=== PATIENT | female | born 1975 | race Caucasian/White ===

== ENCOUNTER 2016-07-24 17:36 | Emergency (ER) | payer OTHER ==
[~2016-07-24] VITALS: Ht 162.6 cm; Wt 83.5 kg
[~2016-07-24 17:36] MED LIST: HUM100VI14 SC; METF1000 PO
[2016-07-24 17:46] VITALS: Ht 162.6 cm; Wt 83.5 kg
[2016-07-24 19:41] LABS: URINE BLOOD (Dip) POC Trace-intact (NEGATIVE)
[2016-07-24 20:23] LABS: ADD SCAN DIFF NO
[2016-07-24 20:26] LABS: BASOPHILS % 0.4 % (0.0-2.0); NEUTROPHIL # 2.7 10^3/ul (1.6-7.5)
[2016-07-24 20:33] LABS: ADD UMIC YES; EOSINOPHILS # 0.1 10^3/ul (0.0-0.5); EOSINOPHILS % 1.9 % (0.0-7.0); HEMATOCRIT 41.7 % (37.0-47.0); LYMPHOCYTES # 1.8 10^3/ul (0.8-2.9); LYMPHOCYTES % 34.1 % (15.0-51.0); MEAN CORPUSCULAR HEMOGLOBIN 29.4 pg (29.0-33.0); MEAN CORPUSCULAR HGB CONC 33.6 g/dl (32.0-37.0); MEAN CORPUSCULAR VOLUME 87.6 fl (82.0-101.0); MEAN PLATELET VOLUME 11.2 fl (7.4-10.4); MONOCYTE # 0.7 10^3/ul (0.3-0.9); MONOCYTES % 12.5 % (0.0-11.0); NEUTROPHILS % 50.9 % (39.0-77.0); PLATELET COUNT 232 10^3/UL (140-415); RED BLOOD COUNT 4.76 10^6/ul (4.20-5.40); RED CELL DISTRIBUTION WIDTH 12.7 % (11.5-14.5); URINE BILIRUBIN (Dip) NEGATIVE (NEGATIVE); URINE BLOOD (Dip) TRACE (NEGATIVE); URINE COLOR LT. YELLOW (YELLOW); URINE GLUCOSE (Dip) >=1000 % (NEGATIVE); URINE KETONES (Dip) NEGATIVE (NEGATIVE); URINE LEUKOCYTE ESTERASE (Dip) NEGATIVE (NEGATIVE); URINE NITRITE (Dip) NEGATIVE (NEGATIVE); URINE TOTAL PROTEIN (Dip) NEGATIVE (NEGATIVE); URINE UROBILINOGEN (Dip) 0.2 E.U./dL (0.1-1.0); WHITE BLOOD COUNT 5.2 10^3/ul (4.8-10.8)
--- NOTE | 2016-07-24 20:59 | RADRPT ---
PROCEDURE: First trimester obstetrical ultrasound. CLINICAL INDICATION: , pelvic pain TECHNIQUE: Transabdominal and transvaginal wallace scale and color Doppler ultrasound of the uterus . COMPARISON: OB ultrasound 07/04/2014 FINDINGS: A single intrauterine gestation is present within the uterine fundus. No evidence of extrauterine gestation. Mean sac diameter: 0.41 cm pole not identified. There appears to be a subchorionic hemorrhage or implantation hemorrhage present measuring up to 1.5 cm Normal size ovaries are present with intact blood flow. Corpus luteum within the left ovary and prob able residual follicle measuring up to 18 mm Free fluid: None. IMPRESSION: Early appearing intrauterine gestational sac with estimated gestational age of 5 weeks 1 days by ult rasound criteria. Small subchorionic hemorrhage/implantation hemorrhage is present. Unless clinically contraindicated recommend correlation with quantitative beta HCG trend and repeate d pelvic ultrasound. RPTAT: AADD .Yariel Henriquez MD, MD Date Time Electronically viewed and signed by .Yariel Henriquez MD, on 07/24/2016 20:59 .B/
[2016-07-24 21:19] LABS: SQUAMOUS EPITHELIAL CELL,UR MANY; URINE RBCS 0-2 /HPF (0)
[2016-07-24] MEDS ORDERED: METO10TA92 PO (22:02)
[2016-07-24] MEDS ORDERED: ACET500C5 PO (22:02)
--- NOTE | 2016-07-24 22:09 | ERD ---
ER Documentation Chief Complaint Date/Time DATE: 07/24/16 TIME: 22:04 Chief Complaint COUGH AND CONGESTION WITH NAUSEA/VOMITING X 1 DAY, CHECK HPI Patient is a 41-year-old female with a past medical history of diabetes who presents the emergency department with a cough and congestion 1 week. Patient states that her cough is productive in nature. Patient reports nasal congestion and clear rhinorrhea. Patient's younger children are also sick with similar symptoms. Both her children are being seen here today. Patient states that she is also having some nausea and vomiting. Patient states she is unsure if she is . Patient does not recall her last period. Patient is reporting bilateral pelvic pain. Patient denies any upper abdominal pain, chest pain, shortness of breath, body aches, ear pain, throat pain. Patient denies any pain with urination. Patient denies any vaginal bleeding or excessive vaginal discharge. ROS All systems reviewed and are negative except as per history of present illness. Medications Home Meds Active Scripts Metoclopramide* (Reglan*) 10 Mg Tablet, 10 MG PO Q6 Y for NAUSEA AND/OR VOMITING , #10 TAB Prov:CHERYL ALBRIGHT PA-C 07/24/16 Acetaminophen* (Tylophen*) 500 Mg Capsule, 1 CAP PO Q6H Y for PAIN AND OR ELEVATED TEMP, #20 CAP Prov:CHERYL ALBRIGHT PA-C 07/24/16 Reported Medications Insulin Human Isophan/Regular (Novolin 70/30) 100 Units/Ml Susp, 30 UNIT SC QPM , EA 12/07/15 Insulin Human Isophan/Regular (Novolin 70/30) 100 Units/Ml Susp, 60 UNIT SC QAM , EA 12/07/15 Metformin Hcl* (Metformin Hcl*) 1,000 Mg Tablet, 1000 MG PO WITH BREAKFAST DINNE , #30 TAB 12/07/15 Allergies Allergies: Coded Allergies: No Known Allergies (Verified Allergy, Unknown, 12/07/15) PMhx/Soc History of Surgery: Yes ( X 1 ) Anesthesia Reaction: No Hx Neurological Disorder: No Hx Respiratory Disorders: No Hx Cardiac Disorders: No Hx Psychiatric Problems: No Hx Miscellaneous Medical Probl: Yes (DM) Hx Alcohol Use: No Hx Substance Use: No Hx Tobacco Use: No Smoking Status: Never smoker FmHx Family History: No diabetes Physical Exam Vitals Vital Signs Date Time Temp Pulse Resp B/P Pulse Ox O2 Delivery O2 Flow Rate FiO2 07/24/16 22:24 98.9 99 19 142/85 96 Room Air 07/24/16 17:46 98.4 106 20 146/88 96 Physical Exam GENERAL: Well-developed, well-nourished female. Appears in no acute distress. HEAD: Normocephalic, atraumatic. No deformities or ecchymosis. EYE: Pupils equal, round, and reactive to light. EOMs intact. No conjunctival erythema. No eye discharge. ENT: External ear without any masses or tenderness. Auditory canals clear bilaterally. TM visualized bilaterally, non-erythematous, non-bulging. Nasal mucosa pink with no discharge. Oropharynx is pink without any tonsillar erythema or exudates. No uvula deviation. No kissing tonsils. NECK: Supple. No meningismus. Normal ROM of the neck. LUNG: Clear to auscultation bilaterally. No rhonchi, wheezing, rales or coarse breath sounds. HEART: Regular rate and rhythm. No murmurs, rubs or gallops. ABDOMEN: Soft, nontender, and nondistended. Positive bowel sounds in all four quadrants. No rebound tenderness, no guarding. (-) McBurney's point tenderness. No CVA tenderness. BACK: No midline tenderness. EXTREMITES: Equal pulses bilaterally. No peripheral clubbing, cyanosis or edema. No unilateral leg swelling. NEUROLOGIC: Alert and oriented to person, place and time. Moving all four extremities. 5/5 strength in all extremities. Normal speech. Steady gait. (-) Brudzinski sign- no flexion of the hips and knees noted with neck flexion. SKIN: Normal color. Warm and dry. No rashes or lesions. Result Diagram: 07/24/162005 Results 24 hrs Laboratory Tests Test 07/24/16 19:43 07/24/16 20:06 Bedside Urine Blood Trace-intact Bedside Urine Glucose (UA) 0.50% Bedside Urine Ketones (LAB) Negative Bedside Urine Leukocyte Esterase (L Negative Bedside Urine Nitrite (LAB) Negative Bedside Urine Protein (LAB) Negative Bedside Urine pH (LAB) 5.0 Basophils # 0.010^3/ul Basophils % 0.4% Beta HCG, Quantitative 2420.8mIU/ml Eosinophils # 0.110^3/ul Eosinophils % 1.9% Hematocrit 41.7% Hemoglobin 14.0g/dl Lymphocytes # 1.810^3/ul Lymphocytes % 34.1% Mean Corpuscular Hemoglobin 29.4pg Mean Corpuscular Hemoglobin Concent 33.6g/dl Mean Corpuscular Volume 87.6fl Mean Platelet Volume 11.2fl Monocytes # 0.710^3/ul Monocytes % 12.5% Neutrophils # 2.710^3/ul Neutrophils % 50.9% Nucleated Red Blood Cells # 0.010^3/ul Nucleated Red Blood Cells % 0.0/100WBC Platelet Count 84615^3/UL Red Blood Count 4.7610^6/ul Red Cell Distribution Width 12.7% Urine Bilirubin NEGATIVE Urine Clarity CLEAR Urine Color LT. YELLOW Urine Glucose >=1000% Urine Hemoglobin TRACE Urine Ketones NEGATIVE Urine Leukocyte Esterase NEGATIVE Urine Microscopic RBC 0-2/HPF Urine Microscopic WBC NONE SEEN/HPF Urine Nitrite NEGATIVE Urine Specific [place] 1.015 Urine Squamous Epithelial Cells MANY Urine Total Protein NEGATIVE Urine Urobilinogen 0.2 E.U./dL Urine pH 5.5 White Blood Count 5.210^3/ul Procedures/MDM ED COURSE: The patient was stable throughout ED course. I kept the patient and/or family informed of laboratory and diagnostic imaging results throughout the ED course. Urine test was positive. Patient requested pelvic ultrasound given that she was unsure of her last menstrual period. DIAGNOSTIC IMAGING: Read by radiologist. DIAGNOSTIC IMAGING REPORT Patient: DEDRICK DE OLIVEIRA : 1975 Age: 41 Sex: F MR #: [id number] DOS: 07/24/162001 Ordering MD: CHERYL ALBRIGHT PA-C Location: [facility] Room/Bed: PROCEDURE: First trimester obstetrical ultrasound. CLINICAL INDICATION: , pelvic pain TECHNIQUE: Transabdominal and transvaginal wallace scale and color Doppler ultrasound of the uterus . COMPARISON: OB ultrasound 07/04/2014 FINDINGS: A single intrauterine gestation is present within the uterine fundus. No evidence of extrauterine gestation. Mean sac diameter: 0.41 cm pole not identified. There appears to be a subchorionic hemorrhage or implantation hemorrhage present measuring up to 1.5 cm Normal size ovaries are present with intact blood flow. Corpus luteum within the left ovary and probable residual follicle measuring up to 18 mm Free fluid: None. IMPRESSION: Early appearing intrauterine gestational sac with estimated gestational age of 5 weeks 1 days by ultrasound criteria. Small subchorionic hemorrhage/implantation hemorrhage is present. Unless clinically contraindicated recommend correlation with quantitative beta HCG trend and repeated pelvic ultrasound. RPTAT: AADD .Yariel Henriquez MD, MD Date Time Electronically viewed and signed by .Yariel Henriquez MD, MD on 07/24/2016 20:59 .B/ CC: CHERYL ALBRIGHT PA-C MEDICAL DECISION MAKING: This is a 41-year-old female who presents the emergency department with a cough , nasal congestion, nausea, vomiting 1 week. Vital signs were reviewed. Patient was afebrile. Patient was unsure of when her last menstrual period was. Patient denied any vaginal bleeding. Patient requested test. Urine test was positive. Given that patient did not recall her last menstrual period, pelvic ultrasound was obtained. Pelvic US showed early appearing intrauterine gestational sac with estimated gestational age of 5 weeks 1 days by ultrasound criteria. Small subchorionic hemorrhage/implantation hemorrhage is present. B-HCG was noted to be 2480.5. Patient was O+. CBC showed no evidence of systemic infection or severe anemia. Urine showed + glucose. Given these findings, the patients presentation is most consistent with early IUP and viral URI. I have a much lower clinical concern for ectopic , ruptured ectopic , molar , spontaneous , anembyronic . Low suspicion for acute otitis media, otitis externa, strep pharyngitis, peritonsillar abscess, pneumonia. PRESCRIPTIONS: Tylenol, Reglan DISCHARGE: At this time, patient is stable for discharge and outpatient management. Patient was given a copy of all lab work and imaging studies. I have instructed the patient to follow-up with her OBGYN in 1-2 days for further monitoring including a repeat b-HCG level. I have instructed the patient to promptly return to the ER at any time for any new or worsening symptoms including increased pain, nausea, vomiting, continued bleeding, weakness, syncope or fever. The patient and/or family expressed understanding of and agreement with this plan. All questions were answered. Home care instructions were provided. Departure Diagnosis: Primary Impression: Viral URI Additional Impressions: Weeks of gestation: less than 8 weeks Qualified Code: Z3A.01 - Less than 8 weeks gestation of Nausea and vomiting Vomiting type: unspecified Vomiting Intractability: unspecified Qualified Code: R11.2 - Nausea and vomiting, intractability of vomiting not specified, unspecified vomiting type Patient Instructions: After Age 35 Referrals: [facility] YOU HAVE RECEIVED A MEDICAL SCREENING EXAM AND THE RESULTS INDICATE THAT YOU DO NOT HAVE A CONDITION THAT REQUIRES URGENT TREATMENT IN THE EMERGENCY DEPARTMENT. FURTHER EVALUATION AND TREATMENT OF YOUR CONDITION CAN WAIT UNTIL YOU ARE SEEN IN YOUR DOCTORS OFFICE WITHIN THE NEXT 1-2 DAYS. IT IS YOUR RESPONSIBILITY TO MAKE AN APPOINTMENT FOR FOLOW-UP CARE. IF YOU HAVE A PRIMARY DOCTOR --you should call your primary doctor and schedule an appointment IF YOU DO NOT HAVE A PRIMARY DOCTOR YOU CAN CALL OUR PHYSICIAN REFERRAL HOTLINE AT IF YOU CAN NOT AFFORD TO SEE A PHYSICIAN YOU CAN CHOSE FROM THE FOLLOWING [facility] [address] [facility]. [facility] [address] [facility]. [facility] [address] [facility]. [facility] [address] [facility]. [facility] [address] [facility]. [facility]. [address] [facility] YOU HAVE RECEIVED A MEDICAL SCREENING EXAM AND THE RESULTS INDICATE THAT YOU DO NOT HAVE A CONDITION THAT REQUIRES URGENT TREATMENT IN THE EMERGENCY DEPARTMENT. FURTHER EVALUATION AND TREATMENT OF YOUR CONDITION CAN WAIT UNTIL YOU ARE SEEN IN YOUR DOCTORS OFFICE WITHIN THE NEXT 1-2 DAYS. IT IS YOUR RESPONSIBILITY TO MAKE AN APPOINTMENT FOR FOLOW-UP CARE. IF YOU HAVE A PRIMARY DOCTOR --you should call your primary doctor and schedule and appointment IF YOU DO NOT HAVE A PRIMARY DOCTOR YOU CAN CALL OUR PHYSICIAN REFERRAL HOTLINE AT . IF YOU CAN NOT AFFORD TO SEE A PHYSICIAN YOU CAN CHOSE FROM THE FOLLOWING [facility] INSTITUTIONS: [facility] [address] [place] [address] [facility] [address] [place] [address] [facility] [address] [place] [address] [employer] [address] [facility] [address] [place] [address] OFFICE FAX , [facility] [address] [place] [address] [address] DENIS [address] [address] [place] [address] [address] BARRETT [facility] [address] [facility], [address], [facility] [address] [address] [address] [place] [address] [facility] [address] [place] [address] [phone] [facility] [address] - [place]ON [address] [facility]. [address], [place] [address] [address] [place] [address] [facility]. [address], [place] [address] [address] HILLI[address] [facility] [address] [place], [place] [id number] Additional Instructions: Follow-up with her [facility] in 2 days for repeat beta-hCG level. Call your primary care doctor TOMORROW for an appointment during the next 1-2 days.See the doctor sooner or return here if your condition worsens before your appointment time. CHERYL ALBRIGHT PA-C Jul 24, 2016 22:09 CHERYL ALBRIGHT PA-C Jul 24, 2016 22:09
[2016-07-24 22:24] VITALS: BP 142/85; PULSE 99; RESP 19; TEMP 98.9
== END 2016-07-24 22:24 | disposition home or self-care (01) ==
LOC: E/R 17:36 → FTE 22:24
DX: J06.9 Acute upper respiratory infection, unspecified (principal); E11.9 Type 2 diabetes mellitus without complications; R10.2 Pelvic and perineal pain; R11.2 Nausea with vomiting, unspecified; Z33.1 Pregnant state, incidental; Z79.84 Long term (current) use of oral hypoglycemic drugs; Z79.4 Long term (current) use of insulin
CPT/HCPCS: 36415; 76801; 76817; 81001; 84702; 85025; 86900; 86901; Z7502; 81003

== ENCOUNTER 2016-07-26 14:50 | Emergency (ER) | payer OTHER ==
[~2016-07-26] VITALS: Ht 162.6 cm; Wt 83.0 kg
[~2016-07-26 14:50] MED LIST changes: +ACET500C5 PO; +METO10TA92 PO
[2016-07-26 15:01] VITALS: Ht 162.6 cm; Wt 83.0 kg
[2016-07-26 16:25] LABS: URINE BLOOD (Dip) POC 1+ (NEGATIVE)
[2016-07-26] MEDS ORDERED: CEPH-443 PO (18:37)
--- NOTE | 2016-07-26 18:49 | ERD ---
ER Documentation Chief Complaint Date/Time DATE: 07/26/16 TIME: 18:39 Chief Complaint 8-WEEKS . HEAVY VB THIS MORNING BUT NOW STOPPED. SORE THROAT. HPI Patient is a 41-year-old female, approximately 5 weeks , with past medical history of diabetes who presents to the emergency department with vaginal bleeding which occurred this morning and has now stopped. Patient states that he noticed some bleeding while wiping her vaginal area. Patient denies using any pads today. Patient denies any fever, chills, nausea, vomiting , chest pain, shortness of breath, abdominal pain, pelvic pain or loss of consciousness. Patient does report some burning pain and itching with urination. Patient reports taking all DM medications as prescribed. Patient's children and herself are currently recovering from a cold. She continues to have some mild throat pain. Patient denies any difficulty eating or drinking fluids. Patient denies any trismus, drooling or hyperextension of her neck. No recent travel. Patient does not recall her last menstrual period. Of note, patient was seen by myself on 07-24-2016 and at that time she was diagnosed with a viral URI and new onset . Patient was unaware that she was at that time. Pelvic ultrasound showed an early appearing intrauterine gestational sac with an estimated gestational age of 5 weeks 1 days by ultrasound criteria. Small subchorionic hemorrhage/implantation hemorrhage is present. Patient's urinalysis on 07-24-2016 showed greater than 1000% glucose. ROS All systems reviewed and are negative except as per history of present illness. Medications Home Meds Active Scripts Cephalexin* (Keflex*) 500 Mg Capsule, 500 MG PO QID for 7 Days, CAP Prov:CHERYL ALBRIGHT PA-C 07/26/16 Metoclopramide* (Reglan*) 10 Mg Tablet, 10 MG PO Q6 Y for NAUSEA AND/OR VOMITING , #10 TAB Prov:CHERYL ALBRIGHT PA-C 07/24/16 Acetaminophen* (Tylophen*) 500 Mg Capsule, 1 CAP PO Q6H Y for PAIN AND OR ELEVATED TEMP, #20 CAP Prov:CHERYL ALBRIGHT PA-C 07/24/16 Reported Medications Insulin Human Isophan/Regular (Novolin 70/30) 100 Units/Ml Susp, 30 UNIT SC QPM , EA 12/07/15 Insulin Human Isophan/Regular (Novolin 70/30) 100 Units/Ml Susp, 60 UNIT SC QAM , EA 12/07/15 Metformin Hcl* (Metformin Hcl*) 1,000 Mg Tablet, 1000 MG PO WITH BREAKFAST DINNE , #30 TAB 12/07/15 Allergies Allergies: Coded Allergies: No Known Allergies (Verified Allergy, Unknown, 12/07/15) PMhx/Soc History of Surgery: Yes ( X 1 ) Anesthesia Reaction: No Hx Neurological Disorder: No Hx Respiratory Disorders: No Hx Cardiac Disorders: No Hx Psychiatric Problems: No Hx Miscellaneous Medical Probl: Yes (DM) Hx Alcohol Use: No Hx Substance Use: No Hx Tobacco Use: No Smoking Status: Never smoker FmHx Family History: No diabetes Physical Exam Vitals Vital Signs Date Time Temp Pulse Resp B/P Pulse Ox O2 Delivery O2 Flow Rate FiO2 07/26/16 19:23 97.9 65 16 125/76 98 Room Air 07/26/16 15:01 97.9 85 16 130/77 98 Physical Exam GENERAL: Well-developed, well-nourished female. Appears in no acute distress. Speaking in full sentences HEAD: Normocephalic, atraumatic. No deformities or ecchymosis. EYE: Pupils equal, round, and reactive to light. EOMs intact. No conjunctival erythema. No eye discharge. ENT: External ear without any masses or tenderness. Auditory canals clear bilaterally. TM visualized bilaterally, non-erythematous, non-bulging. Nasal mucosa pink with no discharge. Oropharynx is pink without any tonsillar erythema or exudates. No tonsillar swelling noted bilaterally. no uvula deviation. No kissing tonsils. Nontender to palpation of bilateral mastoid processes NECK: Supple. No meningismus. Normal ROM of the neck. LUNG: Clear to auscultation bilaterally. No rhonchi, wheezing, rales or coarse breath sounds. HEART: Regular rate and rhythm. No murmurs, rubs or gallops. ABDOMEN: Soft, nontender, and nondistended. Positive bowel sounds in all four quadrants. No rebound tenderness, no guarding. (-) McBurney's point tenderness. No CVA tenderness. BACK: No midline tenderness. EXTREMITES: Equal pulses bilaterally. No peripheral clubbing, cyanosis or edema. No unilateral leg swelling. NEUROLOGIC: Alert and oriented to person, place and time. Moving all four extremities. 5/5 strength in all extremities. Normal speech. Steady gait. SKIN: Normal color. Warm and dry. No rashes or lesions. Results 24 hrs Laboratory Tests Test 07/26/16 16:20 07/26/16 16:28 Beta HCG, Quantitative 2612.3mIU/ml Bedside Urine Blood 1+ Bedside Urine Glucose (UA) 0.50% Bedside Urine Ketones (LAB) Trace Bedside Urine Leukocyte Esterase (L Trace Bedside Urine Nitrite (LAB) Negative Bedside Urine Protein (LAB) Negative Bedside Urine pH (LAB) 5.5 Procedures/MDM MEDICAL DECISION MAKING: This is a 41-year-old female who presents with vaginal bleeding. Patient states that she had minimal vaginal bleeding this morning which is now resolved. Vital signs were reviewed. Patient was afebrile. Patient was hemodynamically stable. Quantitative b-HCG today was 2612. Quantitative B-hCG on 07-24-2016 was 2480.5. A slight increase in beta-hCG level was noted today. A repeat ultrasound was not obtained given that the patient stated that her bleeding had resolved and denied any pelvic pain. Prior ultrasound did show a small subchorionic hemorrhage/implantation hemorrhage which may have been the reason for her bleeding. Given that patient did not have doubling of her beta hCG level, it is possible that the patient is also having a spontaneous at this time. Unable to rule out spontaneous . I discussed these findings with my supervising physician, Dr. Gonzalez, who agreed that the patient should continue to monitor her beta-hCG levels and have a repeat ultrasound in 2-[address] Gonzalez agrees that mo repeat pelvic US needed at this time. Patient was O+. No RhoGam was given. Urine dip showed trace leukocyte esterase and positive glucose. Patient's burning pain with urination and itching may be due to possible UTI or due to urinating excessive amounts of glucose. I had a discussion with the patient about the importance of DM medication compliance especially during . Patient advised that she needs to follow-up with her primary care physician/OBGYN for further management of her DM. Given these findings, the patient's presentation is most consistent with threatened vs subchorionic hemorrhage and UTI. Low suspicion for ectopic , ruptured ectopic , molar , incomplete , complete , missed , placental abruption, placental previa, vasa previa, uterine rupture, anembyronic . Low suspicion for pyelonephritis, nephrolithiasis. PRESCRIPTIONS: Keflex DISCHARGE: At this time, patient is stable for discharge and outpatient management. I had a conversation at length with the patient about the concerns of vaginal bleeding during the 1st trimester of . Patient and/or family understands that her vaginal bleeding can be a normal finding or a sign of miscarriage. I have instructed the patient to follow-up with her OBGYN in 2-3 days for further monitoring including a repeat b-HCG level. I have instructed the patient to promptly return to the ER at any time for any new or worsening symptoms including increased pain, nausea, vomiting, continued bleeding, weakness, syncope or fever. The patient and/or family expressed understanding of and agreement with this plan. All questions were answered. Home care instructions were provided. Departure Diagnosis: Primary Impression: Vaginal bleeding in Trimester: first trimester Qualified Code: O46.91 - Vaginal bleeding in , first trimester Additional Impression: UTI (urinary tract infection) Urinary tract infection type: site unspecified Hematuria presence: with hematuria Qualified Code: N39.0 - Urinary tract infection with hematuria, site unspecified Condition: Stable Patient Instructions: Vaginal Bleed in Referrals: [facility] YOU HAVE RECEIVED A MEDICAL SCREENING EXAM AND THE RESULTS INDICATE THAT YOU DO NOT HAVE A CONDITION THAT REQUIRES URGENT TREATMENT IN THE EMERGENCY DEPARTMENT. FURTHER EVALUATION AND TREATMENT OF YOUR CONDITION CAN WAIT UNTIL YOU ARE SEEN IN YOUR DOCTORS OFFICE WITHIN THE NEXT 1-2 DAYS. IT IS YOUR RESPONSIBILITY TO MAKE AN APPOINTMENT FOR FOLOW-UP CARE. IF YOU HAVE A PRIMARY DOCTOR --you should call your primary doctor and schedule an appointment IF YOU DO NOT HAVE A PRIMARY DOCTOR YOU CAN CALL OUR PHYSICIAN REFERRAL HOTLINE AT IF YOU CAN NOT AFFORD TO SEE A PHYSICIAN YOU CAN CHOSE FROM THE FOLLOWING [facility] [address]. [facility] [address] [facility]. [facility] [address] [facility] [address] [facility] [address] [facility]. [facility]. [address] [facility]. [facility] YOU HAVE RECEIVED A MEDICAL SCREENING EXAM AND THE RESULTS INDICATE THAT YOU DO NOT HAVE A CONDITION THAT REQUIRES URGENT TREATMENT IN THE EMERGENCY DEPARTMENT. FURTHER EVALUATION AND TREATMENT OF YOUR CONDITION CAN WAIT UNTIL YOU ARE SEEN IN YOUR DOCTORS OFFICE WITHIN THE NEXT 1-2 DAYS. IT IS YOUR RESPONSIBILITY TO MAKE AN APPOINTMENT FOR FOLOW-UP CARE. IF YOU HAVE A PRIMARY DOCTOR --you should call your primary doctor and schedule and appointment IF YOU DO NOT HAVE A PRIMARY DOCTOR YOU CAN CALL OUR PHYSICIAN REFERRAL HOTLINE AT . IF YOU CAN NOT AFFORD TO SEE A PHYSICIAN YOU CAN CHOSE FROM THE FOLLOWING COUNT INCLUDES THE [facility] INSTITUTIONS: [facility] [address] [place] [address] [facility] [address] [place] [address] [facility] + [facility] [address] [place] [address] [employer] [place] N[place] [address] [facility] [address] [place] [address] OFFICE FAX , [facility] [address] [place], [place] [id number] [facility] [facility] [address] [place] [address] [address] [place] [address] [facility], [address], [facility] [address] [address] [address] [place] [address] [facility] [address] [place] [address] [address] [facility] [address] - [place] [address], [facility] [address] [address] MEZA, [place] [address] [facility]. [address], [place] [address] [address] HILLI[address], [facility] [address] [place] [address] Additional Instructions: Unable to rule out spontaneous at this time. Patient will need to return to the emergency department for repeat beta-hCG and ultrasound in 2 days. Call your primary care doctor/OBGYN TOMORROW for an appointment during the next 1-2 days.See the doctor sooner or return here if your condition worsens before your appointment time. CHERYL ALBRIGHT PA-C Jul 26, 2016 18:49
[2016-07-26 19:23] VITALS: BP 125/76; PULSE 65; RESP 16; TEMP 97.9
== END 2016-07-26 19:24 | disposition home or self-care (01) ==
LOC: FTE 14:50
DX: O20.9 Hemorrhage in early pregnancy, unspecified (principal); O23.41 Unspecified infection of urinary tract in pregnancy, first trimester; O24.111 Pre-existing type 2 diabetes mellitus, in pregnancy, first trimester
CPT/HCPCS: 81003; 84702; Z7502; 99283

== ENCOUNTER 2016-07-29 10:19 | Emergency (ER) | payer OTHER ==
[~2016-07-29] VITALS: Wt 82.0 kg
[~2016-07-29 10:19] MED LIST changes: +CEPH-443 PO
--- NOTE | 2016-07-29 13:29 | RADRPT ---
PROCEDURE: US Pelvis/OB. CLINICAL INDICATION: vaginal bleeding TECHNIQUE: Multiple sonographic images of the pelvis were obtained utilizing a transabdominal and endovaginal technique. The images were reviewed on a PACS workstation. COMPARISON: 07/24/2016 FINDINGS: There is an irregular appearing cystic structure within the endometrium measuring 2.1 cm which likel y represents an area of subchorionic hemorrhage. No definite intrauterine gestation is seen. The pr eviously seen cystic structure with a possible yolk sac is no longer visualized. The right ovary measures 3.2 x 1.5 x 2.0 cm. The left ovary measures 3.4 x 2.3 x 2.8 cm. There is a 1.9 cm simple cyst in the left ovary. In add ition there is a hemorrhagic corpus luteum cyst in the left ovary. There is a small amount of free fluid in the pelvis. RPTAT: AA IMPRESSION: No definite intrauterine gestation visualized. Moderate area of subchorionic hemorrhage seen within the uterus. Previously seen gestational sac is no longer visualized. Simple cyst and corpus luteum cyst in the left ovary. Small amount of free fluid in the pelvis. Close followup ultrasound and hCG is recommended. .Collins Irwin MD, MD Date Time Electronically viewed and signed by .Collins Irwin MD, MD on 07/29/2016 13:29 .S/
--- NOTE | 2016-07-29 13:40 | ERD ---
ER Documentation Chief Complaint Date/Time DATE: 07/29/16 TIME: 13:38 Chief Complaint here for lab work due to vag bleed possible threatened abo. 9 wks preg HPI This 41-year-old female presents for recheck of vaginal bleeding. She is here approximately 5 days ago. At the time of pelvic ultrasound shows an intrauterine gestational sac without pole or yolk sac. Her quantitative hCG was 2612. She states that the bleeding and cramping is resolved. She has no abdominal pain, fevers, vomiting and denies any current symptoms. ROS All systems reviewed and are negative except as per history of present illness. Medications Home Meds Active Scripts Cephalexin* (Keflex*) 500 Mg Capsule, 500 MG PO QID for 7 Days, CAP Prov:CHERYL ALBRIGHT PA-C 07/26/16 Metoclopramide* (Reglan*) 10 Mg Tablet, 10 MG PO Q6 Y for NAUSEA AND/OR VOMITING , #10 TAB Prov:CHERYL ALBRIGHT PA-C 07/24/16 Acetaminophen* (Tylophen*) 500 Mg Capsule, 1 CAP PO Q6H Y for PAIN AND OR ELEVATED TEMP, #20 CAP Prov:CHERYL ALBRIGHT PA-C 07/24/16 Reported Medications Insulin Human Isophan/Regular (Novolin 70/30) 100 Units/Ml Susp, 30 UNIT SC QPM , EA 12/07/15 Insulin Human Isophan/Regular (Novolin 70/30) 100 Units/Ml Susp, 60 UNIT SC QAM , EA 12/07/15 Metformin Hcl* (Metformin Hcl*) 1,000 Mg Tablet, 1000 MG PO WITH BREAKFAST DINNE , #30 TAB 12/07/15 Allergies Allergies: Coded Allergies: No Known Allergies (Verified Allergy, Unknown, 07/29/16) PMhx/Soc History of Surgery: Yes ( X 1 ) Anesthesia Reaction: No Hx Neurological Disorder: No Hx Respiratory Disorders: No Hx Cardiac Disorders: No Hx Psychiatric Problems: No Hx Miscellaneous Medical Probl: Yes (DM) Hx Alcohol Use: No Hx Substance Use: No Hx Tobacco Use: No Smoking Status: Never smoker Physical Exam Vitals Vital Signs Date Time Temp Pulse Resp B/P Pulse Ox O2 Delivery O2 Flow Rate FiO2 07/29/16 10:21 98.7 85 20 121/74 99 Physical Exam Const: [] Alert, not ill-appearing. Head: Atraumatic Eyes: Normal Conjunctiva ENT: Normal External Ears, Nose and Mouth. Neck: Full range of motion..~ No meningismus. Resp: Clear to auscultation bilaterally Cardio: Regular rate and rhythm, no murmurs Abd: Soft, non tender, non distended. Normal bowel sounds Skin: No petechiae or rashes Back: No midline or flank tenderness Ext: No cyanosis, or edema Neur: Awake and alert Psych: Normal Mood and Affect Results 24 hrs Laboratory Tests Test 07/29/16 12:08 Beta HCG, Quantitative 3491.9mIU/ml Procedures/MDM Quantitative hCG is 3400.. Patient is Rh+ from previous visit. Pelvic ultrasound shows no visible intrauterine . There is a moderate area of subchorionic hemorrhage. There is no gestational sac which was seen on the previous ultrasound. There is a simple cyst left ovary there is no evidence of adnexal or additional abnormalities. Results will be given to patient and patient was instructed to follow-up with primary doctor OB this week. Patient has signs and symptoms of a likely complete although ectopic cannot be completely ruled out. Early normal is possible but I doubt. Patient should return for pain, worsening bleeding, fevers, new or worsening symptoms or with primary doctor this week. She will likely do another hCG check in the next 48-72 hours. Departure Diagnosis: Primary Impression: Vaginal bleeding Condition: Stable Patient Instructions: Vaginal Bleed in , Possible Miscarriage ( Threatened ) Additional Instructions: examines dice emabarazo no esta cresciendo y los hormomes no esta cresciando. posiblemente aborto. cheque con singer docot de emabarazo esta semana. KATHERINE MUNGUIA MD Jul 29, 2016 13:40
[2016-07-29 13:58] VITALS: BP 113/67; PULSE 67; RESP 16; TEMP 98.2
== END 2016-07-29 14:00 | disposition home or self-care (01) ==
LOC: FTE 10:19
DX: O20.9 Hemorrhage in early pregnancy, unspecified (principal); O24.414 Gestational diabetes mellitus in pregnancy, insulin controlled; Z79.4 Long term (current) use of insulin; Z79.84 Long term (current) use of oral hypoglycemic drugs; Z3A.09 9 weeks gestation of pregnancy
CPT/HCPCS: 36415; 76801; 76817; 84702; Z7502

== ENCOUNTER 2016-09-21 12:59 | Emergency (ER) | payer OTHER ==
[~2016-09-21] VITALS: Wt 78.0 kg
[2016-09-21] MEDS ORDERED: ACETAMINOPHEN 500 MG TAB PO STA (13:52)
[2016-09-21 14:17] LABS: URINE BLOOD (Dip) POC Trace-intact (NEGATIVE)
[2016-09-21] MEDS ORDERED: CEPHALEXIN 500 MG CAP PO ONE (16:30)
--- NOTE | 2016-09-21 16:41 | RADRPT ---
PROCEDURE: Obstetrical ultrasound greater than 14 weeks CLINICAL INDICATION: Pelvic pain TECHNIQUE: Real time sonographic imaging of the gravid uterus is performed transabdominally and mu ltiple static wallace scale and Doppler images are submitted for review as are measurements. The image s are reviewed on the PACS. COMPARISON: 07/29/2016 FINDINGS: There is a single living intrauterine gestation in variable presentation. The heart beat is e stimated at 146 bpm. The measurements are as follows: BPD:2.31 cm HC:8.70 cm AC:8.08 cm FL:1.62 cm Estimated gestational age is 14 weeks 2 days. The estimated date of delivery is 03/20/2017. The estimated weight is 100 grams. Placenta is not well delineated lower in detail of by the paster hat lining. The amniotic fluid index is not calculated by the paster hat lining. RPTAT:HJJR IMPRESSION: 1. Single viable intrauterine gestation estimated at 14 weeks 2 days with the estimated date of deli very 03/20/2017. 2. Estimated weight of 100 g is less than the 3rd percentile. Follow-up evaluation is recomme nded. Physician Preet Date Time Electronically viewed and signed by Physician Preet on 09/21/2016 16:41 JR/
[2016-09-21] MEDS ORDERED: CEPH-443 PO (16:55)
[2016-09-21] MEDS ORDERED: ACET500C5 PO (16:55)
--- NOTE | 2016-09-21 16:58 | ERD ---
ER Documentation Chief Complaint Date/Time DATE: 09/21/16 TIME: 16:55 Chief Complaint PELVIC PAIN 9 WEKS PREG DENIES VB HPI This 5-year-old female presents with lower pelvic pain for last 2 days. She is approximately 9 weeks by dates. She denies vaginal bleeding, dysuria, fevers, vomiting. Patient has history of diabetes and is on NovoLog and Humalog. She has an appointment with her OB on Friday. She is a G6.PARA 2. ROS All systems reviewed and are negative except as per history of present illness. Medications Home Meds Active Scripts Acetaminophen* (Tylophen*) 500 Mg Capsule, 1 CAP PO Q6H Y for PAIN AND OR ELEVATED TEMP, #15 CAP Prov:KATHERINE MUNGUIA MD 09/21/16 Cephalexin* (Keflex*) 500 Mg Capsule, 500 MG PO QID for 5 Days, CAP Prov:KATHERINE MUNGUIA MD 09/21/16 Cephalexin* (Keflex*) 500 Mg Capsule, 500 MG PO QID for 7 Days, CAP Prov:CHERYL ALBRIGHT PA-C 07/26/16 Metoclopramide* (Reglan*) 10 Mg Tablet, 10 MG PO Q6 Y for NAUSEA AND/OR VOMITING , #10 TAB Prov:CHERYL ALBRIGHT PA-C 07/24/16 Acetaminophen* (Tylophen*) 500 Mg Capsule, 1 CAP PO Q6H Y for PAIN AND OR ELEVATED TEMP, #20 CAP Prov:CHERYL ALBRIGHT PA-C 07/24/16 Reported Medications Insulin Human Isophan/Regular (Novolin 70/30) 100 Units/Ml Susp, 30 UNIT SC QPM , EA 12/07/15 Insulin Human Isophan/Regular (Novolin 70/30) 100 Units/Ml Susp, 60 UNIT SC QAM , EA 12/07/15 Metformin Hcl* (Metformin Hcl*) 1,000 Mg Tablet, 1000 MG PO WITH BREAKFAST DINNE , #30 TAB 12/07/15 Allergies Allergies: Coded Allergies: No Known Allergies (Verified Allergy, Unknown, 07/29/16) PMhx/Soc History of Surgery: Yes ( X 1 ) Anesthesia Reaction: No Hx Neurological Disorder: No Hx Respiratory Disorders: No Hx Cardiac Disorders: No Hx Psychiatric Problems: No Hx Miscellaneous Medical Probl: Yes (DM) Hx Alcohol Use: No Hx Substance Use: No Hx Tobacco Use: No Physical Exam Vitals Vital Signs Date Time Temp Pulse Resp B/P Pulse Ox O2 Delivery O2 Flow Rate FiO2 09/21/16 13:10 98.0 94 18 142/69 99 Physical Exam Const: [] Alert, [id number] per Head: Atraumatic Eyes: Normal Conjunctiva ENT: Normal External Ears, Nose and Mouth. Neck: Full range of motion..~ No meningismus. Resp: Clear to auscultation bilaterally Cardio: Regular rate and rhythm, no murmurs Abd: Soft, non tender, non distended. Normal bowel sounds Skin: No petechiae or rashes Back: No midline or flank tenderness Ext: No cyanosis, or edema Neur: Awake and alert Psych: Normal Mood and Affect Results 24 hrs Laboratory Tests Test 09/21/16 14:12 09/21/16 14:18 Bedside Glucose 139mg/dL Bedside Urine pH (LAB) 5.5 Bedside Urine Protein (LAB) 2+ Bedside Urine Glucose (UA) Negative Bedside Urine Ketones (LAB) Negative Bedside Urine Blood Trace-intact Bedside Urine Nitrite (LAB) Negative Bedside Urine Leukocyte Esterase (L 1+ Current Medications Medications (Trade) Dose Ordered Sig/Sharri Route PRN Reason Start Time Stop Time Status Last Admin Dose Admin Acetaminophen (Tylenol Tab) 500 mg ONCE STAT PO 09/21/16 13:52 09/21/16 13:53 DC 09/21/16 14:30 Cephalexin (Keflex) 500 mg ONCE ONCE PO 09/21/16 16:30 09/21/16 16:31 DC 09/21/16 16:21 Procedures/MDM Accu-Chek was 139. Pelvic ultrasound shows appears to be a 14 week 2 day . There are no acute abnormalities appreciated. Urine shows positive leukocytes, hemoglobin and negative nitrites. Patient was given Keflex 500 mg and Tylenol 500 mg of mouth. Patient since with lower abdominal pain early with signs of UTI. She will treated with Keflex Tylenol at home instructions for clear fluids. Patient is a point with OB on Friday. She should keep this appointment. Patient instructed to continue her insulin as prescribed. Is no evidence to suggest ectopic , ovarian torsion, signs and symptoms to suggest additional causes of abdominal pain such as appendicitis. Patient should return for fevers, vomiting, vaginal bleeding, new worsening symptoms however. Departure Diagnosis: Primary Impression: Pelvic pain complicating Additional Impression: UTI (lower urinary tract infection) Condition: Stable Additional Instructions: ORINA TIENE INFECCION. CHEQUE CON WATERS DOCTOR DE EMARAZO ESTA SEMANA. O PARA MAS NUEVA SIMPTOMAS. KATHERINE MUNGUIA MD Sep 21, 2016 16:58
[2016-09-21] MEDS ORDERED: INSU100C SQ ×2 (17:19→17:20)
[2016-09-21 17:49] VITALS: BP 132/71; PULSE 68; RESP 18
== END 2016-09-21 17:49 | disposition home or self-care (01) ==
LOC: FTE 12:59
DX: O26.892 Other specified pregnancy related conditions, second trimester (principal); R10.2 Pelvic and perineal pain; O23.42 Unspecified infection of urinary tract in pregnancy, second trimester; O24.112 Pre-existing type 2 diabetes mellitus, in pregnancy, second trimester; Z79.4 Long term (current) use of insulin; Z79.84 Long term (current) use of oral hypoglycemic drugs
CPT/HCPCS: 76801; 81003; 82962; Z7502; Z7610

== ENCOUNTER 2016-10-03 17:56 | Emergency (ER) | payer OTHER ==
[~2016-10-03] VITALS: Ht 160 cm; Wt 86.0 kg
[~2016-10-03 17:56] MED LIST changes: +INSU100C SQ
[2016-10-03 18:13] VITALS: Ht 160 cm; Wt 86.0 kg
[2016-10-03 20:43] LABS: ADD SCAN DIFF NO
[2016-10-03 20:45] LABS: BASOPHILS % 0.1 % (0.0-2.0); EOSINOPHILS # 0.1 10^3/ul (0.0-0.5); EOSINOPHILS % 1.2 % (0.0-7.0); HEMATOCRIT 38.2 % (37.0-47.0); HEMOGLOBIN 12.8 g/dl (12.0-16.0); LYMPHOCYTES # 2.2 10^3/ul (0.8-2.9); LYMPHOCYTES % 25.7 % (15.0-51.0); MEAN CORPUSCULAR HEMOGLOBIN 29.8 pg (29.0-33.0); MEAN CORPUSCULAR HGB CONC 33.5 g/dl (32.0-37.0); MEAN PLATELET VOLUME 10.8 fl (7.4-10.4); MONOCYTE # 0.7 10^3/ul (0.3-0.9); MONOCYTES % 7.9 % (0.0-11.0); NEUTROPHIL # 5.4 10^3/ul (1.6-7.5); NEUTROPHILS % 64.7 % (39.0-77.0); PLATELET COUNT 202 10^3/UL (140-415); RED BLOOD COUNT 4.29 10^6/ul (4.20-5.40); WHITE BLOOD COUNT 8.4 10^3/ul (4.8-10.8)
[2016-10-03 20:52] LABS: ADD UMIC YES; URINE BILIRUBIN (Dip) NEGATIVE (NEGATIVE); URINE BLOOD (Dip) TRACE (NEGATIVE); URINE COLOR LT. YELLOW (YELLOW); URINE GLUCOSE (Dip) NEGATIVE (NEGATIVE); URINE KETONES (Dip) TRACE (NEGATIVE); URINE LEUKOCYTE ESTERASE (Dip) 3+ (NEGATIVE); URINE NITRITE (Dip) NEGATIVE (NEGATIVE); URINE TOTAL PROTEIN (Dip) TRACE (NEGATIVE); URINE UROBILINOGEN (Dip) 0.2 E.U./dL (0.1-1.0)
[2016-10-03 20:59] LABS: ALBUMIN 3.6 g/dl (3.3-4.9); POTASSIUM 3.7 mmol/L (3.5-5.1)
[2016-10-03 21:01] LABS: CREATININE 0.53 mg/dl (0.44-1.00)
--- NOTE | 2016-10-03 21:01 | RADRPT ---
PROCEDURE: US OB. CLINICAL INDICATION: Size and dates , vaginal bleeding TECHNIQUE: Multiple sonographic images of the pelvis and gravid uterus were obtained. The images were reviewed on a PACS workstation. COMPARISON: 09/21/16 FINDINGS: There is a single viable intrauterine gestation. Cardiac activity is present with 173 beats per min new. There is a vertex presentation. The placenta is anterior. There is no evidence for an abruption or placenta previa. There is a decreased amount of amniotic fluid with an ELIZA = 1.0 cm. Measurements were made in order to determine age. The results are as follows: BPD =2.6 cm HC =9.8 cm AC =9.6 cm FL =1.5 cm Estimated gestational age of approximately 14 weeks and 6 days based on ultrasound measurements. The estimated date of delivery is 03/28/17, based on ultrasound measurements. The EFW = 112 g The ovaries are not visualized. RPTAT: AA IMPRESSION: Single viable intrauterine gestation of approximately 14 weeks and 6 days based on ultrasound measu rements. Very minimal interval growth compared to the prior study of 09/21/2016. Close follow-up is needed. Oligohydramnios. .Collins Irwin MD, MD Date Time Electronically viewed and signed by .Collins Irwin MD, MD on 10/03/2016 21:01 .S/
[2016-10-03 21:02] LABS: ALBUMIN/GLOBULIN RATIO 1.02; BILIRUBIN,INDIRECT 0.1 mg/dl (0-1.1); BILIRUBIN,TOTAL 0.1 mg/dl (0.2-1.3); CALCIUM 9.3 mg/dl (8.4-10.2); TOTAL PROTEIN 7.1 g/dl (6.1-8.1)
[2016-10-03 21:33] LABS: BACTERIA,URINE MANY; TRANSITIONAL EPI CELLS,URINE MANY; URINE RBCS 0-2 /HPF (0)
--- NOTE | 2016-10-03 21:56 | ERD ---
ER Documentation Chief Complaint Date/Time DATE: 10/03/16 TIME: 21:54 Chief Complaint ABDOMINAL PAIN TODAY HPI This is a 41-year-old female who is with 3 spontaneous abortions approximately 12 weeks complaining of abdominal pain that began today. She denies any vaginal bleeding. She is currently being treated for a urinary tract infection with Keflex so therefore she does still admit to dysuria and increased urinary frequency. Denies fever. Denies any nausea vomiting or diarrhea. She is taking her vitamins. ROS All systems reviewed and are negative except as per history of present illness. Medications Home Meds Active Scripts Acetaminophen* (Tylophen*) 500 Mg Capsule, 1 CAP PO Q6H Y for PAIN AND OR ELEVATED TEMP, #15 CAP Prov:KATHERINE MUNGUIA MD 09/21/16 Cephalexin* (Keflex*) 500 Mg Capsule, 500 MG PO QID for 5 Days, CAP Prov:KATHERINE MUNGUIA MD 09/21/16 Metoclopramide* (Reglan*) 10 Mg Tablet, 10 MG PO Q6 Y for NAUSEA AND/OR VOMITING , #10 TAB Prov:CHERYL ALBRIGHT PA-C 07/24/16 Reported Medications Insulin Lispro (Humalog) 100 Unit/1 Ml Cartridge, 10 UNIT SQ QPM 09/21/16 Insulin Lispro (Humalog) 100 Unit/1 Ml Cartridge, 14 UNIT SQ QAM 09/21/16 Insulin Human Isophan/Regular (Novolin 70/30) 100 Units/Ml Susp, 30 UNIT SC QPM , EA 12/07/15 Metformin Hcl* (Metformin Hcl*) 1,000 Mg Tablet, 1000 MG PO WITH BREAKFAST DINNE , #30 TAB 12/07/15 Allergies Allergies: Coded Allergies: No Known Allergies (Verified Allergy, Unknown, 07/29/16) PMhx/Soc History of Surgery: Yes ( X 1 ) Anesthesia Reaction: No Hx Neurological Disorder: No Hx Respiratory Disorders: No Hx Cardiac Disorders: No Hx Psychiatric Problems: No Hx Miscellaneous Medical Probl: Yes (DM) Hx Alcohol Use: No Hx Substance Use: No Hx Tobacco Use: No Smoking Status: Never smoker FmHx Family History: diabetes Physical Exam Vitals Vital Signs Date Time Temp Pulse Resp B/P Pulse Ox O2 Delivery O2 Flow Rate FiO2 10/03/16 18:13 98.4 83 18 116/70 98 Physical Exam General: well developed, well nourished, alert, nontoxic, no distress Head: normocephalic, atraumatic Neck: Supple, nontender, no lymphadenopathy, no midline tenderness Respiratory: Clear to auscaultation bilaterally, speaks in full sentences, no use of accesory muscles or labored breathing, no rales, ronchi, or wheezing Cardiovascular: RRR, No murmurs GI: soft, non tender, non distended, negative murphys sign, negative mcburneys point tenderness, no cva tenderness bilaterally, no rebound or guarding Back: no midline tenderness, no step offs or bony abnormalities, sensation to light touch in tact Result Diagram: 10/03/16202210/03/162022 Results 24 hrs Laboratory Tests Test 10/03/16 20:23 White Blood Count 8.410^3/ul Red Blood Count 4.2910^6/ul Hemoglobin 12.8g/dl Hematocrit 38.2% Mean Corpuscular Volume 89.0fl Mean Corpuscular Hemoglobin 29.8pg Mean Corpuscular Hemoglobin Concent 33.5g/dl Red Cell Distribution Width 13.0% Platelet Count 18280^3/UL Mean Platelet Volume 10.8fl Neutrophils % 64.7% Lymphocytes % 25.7% Monocytes % 7.9% Eosinophils % 1.2% Basophils % 0.1% Nucleated Red Blood Cells % 0.0/100WBC Neutrophils # 5.410^3/ul Lymphocytes # 2.210^3/ul Monocytes # 0.710^3/ul Eosinophils # 0.110^3/ul Basophils # 0.010^3/ul Nucleated Red Blood Cells # 0.010^3/ul Urine Color LT. YELLOW Urine Clarity SLIGHTLY CLOUDY Urine pH 7.0 Urine Specific [place] 1.020 Urine Ketones TRACE Urine Nitrite NEGATIVE Urine Bilirubin NEGATIVE Urine Urobilinogen 0.2 E.U./dL Urine Leukocyte Esterase 3+ Urine Microscopic RBC 0-2/HPF Urine Microscopic WBC >200/HPF Urine Transitional Epithelial Cells MANY Urine Bacteria MANY Urine Hemoglobin TRACE Urine Glucose NEGATIVE% Urine Total Protein TRACE Sodium Level 135mmol/L Potassium Level 3.7mmol/L Chloride Level 101mmol/L Carbon Dioxide Level 26mmol/L Anion Gap 12 Blood Urea Nitrogen 19mg/dl Creatinine 0.53mg/dl Glucose Level 113mg/dl Calcium Level 9.3mg/dl Total Bilirubin 0.1mg/dl Direct Bilirubin 0.00mg/dl Indirect Bilirubin 0.1mg/dl Aspartate Amino Transf (AST/SGOT) 29IU/L Alanine Aminotransferase (ALT/SGPT) 46IU/L Alkaline Phosphatase 70IU/L Total Protein 7.1g/dl Albumin 3.6g/dl Globulin 3.50g/dl Albumin/Globulin Ratio 1.02 Beta HCG, Quantitative 38325.0mIU/ml Procedures/MDM This is a 41-year-old female who presents with abdominal pain during . Her GI examination is benign. Workup is unremarkable other than evidence of cystitis which she is already being treated with Keflex which I can recommend she continue to take her antibiotics as prescribed. Ultrasound showed normal IUP but did show minimal growth between today's ultrasound and the last ultrasounds are recommended she return in a couple days for a follow-up examination. She was given copies of all of her labs and ultrasound reports that she can follow with primary care. Recommended this patient follow up with her primary care doctor within 48 hours or return to the emergency room for any worsening of symptoms. However this time I do believe there is suitable for outpatient management. I answered all their questions and they agreed with the plan and were discharged home. Departure Diagnosis: Primary Impression: Pelvic pain complicating Condition: Stable Patient Instructions: Pelvic Pain In : Unclear (2-3 Trimester) Additional Instructions: Llame al doctor RYLIE y linda tuan EMILEE PARA DENTRO DE 1-2 BURTON.Dgale a la secretaria que nosotros le instruimos hacer esta emilee.Avise o llame si singer condicin se empeora antes de la emilee. Regresa aqui si peor o no mejor. IVIS GALEANO PA-C October 03, 2016 21:56
[2016-10-03 22:05] VITALS: BP 122/80; PULSE 72; RESP 16
== END 2016-10-03 22:07 | disposition home or self-care (01) ==
LOC: FTE 17:56
DX: O26.892 Other specified pregnancy related conditions, second trimester (principal); R10.2 Pelvic and perineal pain; O24.112 Pre-existing type 2 diabetes mellitus, in pregnancy, second trimester; E11.9 Type 2 diabetes mellitus without complications; Z3A.14 14 weeks gestation of pregnancy; Z79.4 Long term (current) use of insulin; Z79.84 Long term (current) use of oral hypoglycemic drugs
CPT/HCPCS: 36415; 76805; 80053; 81001; 84702; 85025; Z7502; 81003

== ENCOUNTER 2016-12-15 18:58 | Inpatient (IN) | payer OTHER ==
[~2016-12-15] VITALS: Ht 163.8 cm; Wt 85.6 kg
[2016-12-15 19:17] VITALS: BP 123/78; PULSE 88; RESP 18; Ht 163.8 cm; Wt 85.6 kg
[2016-12-15] MEDS ORDERED: FER325 PO (19:24)
[2016-12-15] MEDS ORDERED: PRENAT PO (19:24)
[2016-12-15] MEDS ORDERED: FOLI-49 PO (19:24)
[2016-12-15] MEDS: LACTATED RINGER'S 1,000 ML IV STA ×2 (20:45→21:00)
[2016-12-15 21:05] LABS: BASOPHILS % 0.2 % (0.0-2.0); EOSINOPHILS # 0.1 10^3/ul (0.0-0.5); EOSINOPHILS % 1.4 % (0.0-7.0); HEMATOCRIT 36.5 % (37.0-47.0); HEMOGLOBIN 12.5 g/dl (12.0-16.0); LYMPHOCYTES # 1.8 10^3/ul (0.8-2.9); LYMPHOCYTES % 20.5 % (15.0-51.0); MEAN CORPUSCULAR HEMOGLOBIN 30.6 pg (29.0-33.0); MEAN CORPUSCULAR HGB CONC 34.2 g/dl (32.0-37.0); MEAN CORPUSCULAR VOLUME 89.5 fl (82.0-101.0); MONOCYTE # 0.8 10^3/ul (0.3-0.9); MONOCYTES % 9.3 % (0.0-11.0); NEUTROPHILS % 68.1 % (39.0-77.0); PLATELET COUNT 211 10^3/UL (140-415); RED BLOOD COUNT 4.08 10^6/ul (4.20-5.40); RED CELL DISTRIBUTION WIDTH 13.2 % (11.5-14.5); WHITE BLOOD COUNT 8.8 10^3/ul (4.8-10.8)
--- NOTE | 2016-12-15 21:24 | RADRPT ---
AMENDMENT: 12/15/2016 10:27:39 PM UMER LOPEZ MD ELIZA equals 2.3 cm, markedly diminished, consistent with significant oligohydramnios. PROCEDURE: US OB. CLINICAL INDICATION: Abdominal pain. TECHNIQUE: Multiple sonographic images of the uterus were obtained. The images were revi ewed on a PACS workstation. COMPARISON: No prior studies are available for comparison. FINDINGS: There is a single live intrauterine gestation. heart rate is 157 beats per minute. Measurements were made in order to determine age. The results are as follows: BPD = 6.01 cm. HC = 20.63 cm. AC = 20.33 cm. FL = 4.13 cm. Estimated weight is 664 +/- 100 grams. LMP growth percentile is 6.7 %. Menstrual age by ultrasound dates is 24 weeks 0 days. The estimated date of delivery is 04/06/2017. Position is cephalic and placenta is anterior grade 1. There is no evidence for an abruption or plac enta previa. IMPRESSION: 1. Single live intrauterine gestation of 24 weeks 0 days menstrual age by ultrasound dates. 2. The estimated date of delivery is 04/06/2017. RPTAT: QQ .Umer Lopez MD, Date Time Electronically viewed and signed by .Umer Lopez MD, on 12/15/2016 22:28 .B/
[2016-12-15 21:38] LABS: ADD UMIC YES; UR ASCORBIC ACID NEGATIVE (NEGATIVE); UR BACTERIA FEW /HPF (NONE SEEN); UR BILIRUBIN (Dip) NEGATIVE (NEGATIVE); UR BLOOD (Dip) 1+ mg/dL (NEGATIVE); UR CLARITY CLOUDY (CLEAR); UR COLOR YELLOW (YELLOW); UR GLUCOSE (Dip) NEGATIVE (NEGATIVE); UR KETONES (Dip) NEGATIVE (NEGATIVE); UR LEUKOCYTE ESTERASE (Dip) 3+ Leu/ul (NEGATIVE); UR MUCUS FEW /HPF (NONE SEEN); UR NITRITE (Dip) NEGATIVE (NEGATIVE); UR RBC 128 /HPF (0-5); UR SQUAMOUS EPITHELIAL CELL MODERATE /HPF (FEW); UR TOTAL PROTEIN (Dip) 1+ mg/dl (NEGATIVE); UR UROBILINOGEN (Dip) NEGATIVE (NEGATIVE)
[2016-12-15] MEDS: LACTATED RINGER'S 1,000 ML IV SCH (22:01)
[2016-12-15] MEDS ORDERED: LACTATED RINGER'S 1,000 ML IV SCH (23:25)
[2016-12-15] MEDS ORDERED: DOCUSATE SODIUM 100 MG CAP PO PRN (23:30)
[2016-12-16] MEDS ORDERED: GLUCAGON 1 MG INJ IM PRN (00:30)
[2016-12-16] MEDS ORDERED: DEXTROSE 50% 50 ML SYRINGE IV PRN ×2 (00:30)
[2016-12-16] MEDS ORDERED: GLUCOSE GEL 15 GRAM TUBE PO PRN ×2 (00:30)
[2016-12-16] MEDS ORDERED: GLUCOSE GEL 15 GRAM TUBE BUCCAL PRN (00:30)
--- NOTE | 2016-12-16 01:40 | RADRPT ---
PROCEDURE: US OB cervical length. CLINICAL INDICATION: labor TECHNIQUE: Multiple sonographic images of the pelvis were obtained. The images were reviewed on a PACS workstation. COMPARISON: No pertinent prior examinations were submitted for comparison. FINDINGS: The cervix is closed with a length of 4 cm. There is trace pelvic free fluid. IMPRESSION: Cervical length 4 cm. RPTAT: HIKT .Rosalio Montes MD, MD Date Time Electronically viewed and signed by .Rosalio Montes MD, MD on 12/16/2016 01:40 .T/
[2016-12-16] MEDS ORDERED: BETAMET NA PHOS/AC(6 MG/ML) 5ML INJ IM SCH (02:00)
[2016-12-16] MEDS: LACTATED RINGER'S 1,000 ML IV SCH ×2 (06:06→20:02)
[2016-12-16] MEDS ORDERED: INSULIN ASPART [NOVOLOG] 3 ML PEN SC SCH ×3 (07:05→17:05)
[2016-12-16] MEDS ORDERED: INSULIN LISPRO 100 UNIT/ML VIAL SC SCH ×3 (07:05→17:05)
[2016-12-16] MEDS ORDERED: NPH, HUMAN INSULIN ISOPHANE 3ML VIAL SC SCH ×2 (07:05→21:00)
[2016-12-16] MEDS: ACCU-CHEK XX SCH ×7 (08:00→21:00)
[2016-12-16] MEDS ORDERED: ACETAMINOPHEN 325 MG TAB PO PRN (09:30)
[2016-12-16] MEDS: PRENATAL VITAMIN PO SCH (09:31)
--- NOTE | 2016-12-16 12:44 | PREOPHP ---
DATE OF ADMISSION: 12/16/2016 HISTORY OF PRESENT ILLNESS: This is a 75-year-old female, 5 para 3. The patient came in on September of this year, referred for a large mass that was coming out of her for years that was worsening lately with difficulty voiding due to this mass that was difficult to push back in and also with difficult bowel movement. She had a history of hypertension, appendectomy and tonsillectomy. ALLERGIES: TO PENICILLIN AND IODINE. MEDICATIONS: She has pain with hypertension treated with benazepril, aspirin, naproxen, and citalopram. FAMILY HISTORY: For hypertension, heart attacks, diabetes and strokes. REVIEW OF SYSTEMS: Is pertinent for lung coughing, chronic bronchitis. No history of heart disease except for hypertension. No history of GI disease except for being bloated and constipated. No history of diabetes or hypothyroidism. No neurological or orthopedic disease. She is allergic to iodine and penicillin. She had a history of rosacea and mini-stroke in 2012. The patient is on aspirin because of that. She has a family history for hypertension, heart attacks, strokes, diabetes, kidney stones. PHYSICAL EXAMINATION: GENERAL: Good. VITAL SIGNS: Stable, blood pressure is 130/70, pulse is 80, she is afebrile. She weighs 155. She is 5 feet 4 inches. HEENT: The head and neck is normal. BREASTS: Soft, nontender, no masses. CHEST: Clear. HEART: Normal sinus rhythm. BACK: Normal. ABDOMEN: The abdomen is soft, nontender, no masses. GENITALIA: With a large rectocele and enterocele, more so than an anterior prolapse. The uterus is small, atrophic non prolapsing. Adnexa negative. EXTREMITIES: Normal. IMPRESSION: The procedure is scheduled for rectocele repair, enterocele repair, possible anterior repair, possible Uphold graft with [employer]. PLAN: She has been advised for a rectocele and enterocele repair with Uphold graft with possible anterior repair it if it is necessary, enterocele repair and she has been advised to use estrogen cream. She has been advised of the possible risks and possible complications of the procedure with her alternatives and options. Written information was provided. She had no more questions, and agreed to go ahead with the procedure with full understanding and no more questions. Dictated By: Annmarie Colvin MD /sushil/karuna /Document#: [id number]
--- NOTE | 2016-12-16 16:54 | PERINOTE ---
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 Patient does not accept this diagnosis and has not followed up with her PMD Gestational diabetes, poorly controlled, has been on insulin. Recommendations: Would continue with efforts to control this patient's blood glucose. She can be discharged when safe blood glucose levels are reached. OB Subjective Free Text/Dictaton Patient with gestational diabetes (possibly undiagnosed pregestational diabetes ) admitted with abdominal pain, given steroids with elevation of blood glucose. 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 Patient's blood glucose has not been in good control in this . HD# 2 IUP @ 25W3D Current Medications Current Medications Lactated Ringer's (Lr) 1,000 ml @ 125 mls/hr Q8H IV Last administered on 06:06; Admin Dose 125 MLS/HR; Start 12/15/16 at 21:30; Status Future hold Prenat Multivit/ [place]/Iron/Folic Ac () 1 tab DAILY PO Last administered on 12/16/16 09:31; Admin Dose 1 TAB; Start 12/16/16 at 09:00 Docusate Sodium (Colace) 100 mg DAILY PRN PO CONSTIPATION; Start 12/15/16 at 23 :30 Diagnostic Test (Pha) (Accu-Chek) 1 ea FBSPP XX Last administered on 12/16/16 11:00; Admin Dose 1 EA; Start 12/16/16 at 06:00 Miscellaneous Information 1 ea NOTE XX ; Start 12/16/16 at 00:30 Glucose (Glutose) 15 gm Q15M PRN PO DECREASED GLUCOSE; Start 12/16/16 at 00:30 Glucose (Glutose) 22.5 gm Q15M PRN PO DECREASED GLUCOSE; Start 12/16/16 at 00: 30 Dextrose (D50w Syringe) 25 ml Q15M PRN IV DECREASED GLUCOSE; Start 12/16/16 at 00:30 Dextrose (D50w Syringe) 50 ml Q15M PRN IV DECREASED GLUCOSE; Start 12/16/16 at 00:30 Glucagon (Glucagen) 1 mg Q15M PRN IM DECREASED GLUCOSE; Start 12/16/16 at 00:30 Glucose (Glutose) 15 gm Q15M PRN BUCCAL DECREASED GLUCOSE; Start 12/16/16 at 00 :30 Insulin Human NPH (Humulin N) 18 unit HS SC ; Start 12/16/16 at 21:00 Betamethasone Acet/Betameth SodPhos (Celestone Soluspan) 12 mg Q24H IM Last administered on 12/16/16 02:07; Admin Dose 12 MG; Start 12/16/16 at 02:00; Stop 12/17/16 at 02:01 Acetaminophen (Tylenol Tab) 650 mg Q6H PRN PO PAIN AND OR ELEVATED TEMP Last administered on 12/16/16 09:31; Admin Dose 650 MG; Start 12/16/16 at 09:30 Past Medical History Medical History: no pertinent history Surgical History: no surgical history PARTS FINISHER History: no pertinent PARTS FINISHER history Para: 2 : 6 LMP (Females 10-50): Family History Significant Family History: diabetes OB Admission Exam Physical Exam Vitals: Vital Signs Date Time Temp Pulse Resp B/P Pulse Ox O2 Delivery O2 Flow Rate FiO2 12/15/16 19:17 97.9 88 18 123/78 98 Room Air 12/16/16 78 114/60 HEENT: WNL Heart: Rhythm Normal Abdomen: WNL Heart Rate: 150's Varibility: Moderate (very limited record (about 3 minutes)) Last 72 hourBlood Glucose Bedside Glucose - 72 Hours Test 12/16/16 06:33 12/16/16 08:01 12/16/16 11:07 12/16/16 12:45 Bedside Glucose 215mg/dL (70-220) 213mg/dL (70-220) 211mg/dL (70-220) 197mg/dL (70-220) Test 12/16/16 14:41 Bedside Glucose 225mg/dL (70-220) H Last 72 hours Lab Results CBC & BMP 12/15/16 20:45 Hemoglobin A1C Test 12/16/16 05:55 Hemoglobin A1c 8.1 H Copies To: CC: ROXANA MCCORMICK MD, MARIE H MD Dec 16, 2016 16:54
[2016-12-16] MEDS: INSULIN ASPART [NOVOLOG] 3 ML PEN SC SCH ×2 (17:42→17:50)
[2016-12-16] MEDS: INSULIN DETEMIR [LEVEMIR] 3ML CART SC SCH (20:04)
[2016-12-17] MEDS: LACTATED RINGER'S 1,000 ML IV SCH ×3 (03:12→19:27)
[2016-12-17] MEDS: INSULIN ASPART [NOVOLOG] 3 ML PEN SC SCH ×6 (08:00→18:05)
[2016-12-17] MEDS: ACCU-CHEK XX SCH ×8 (09:02→21:19)
[2016-12-17] MEDS: INSULIN DETEMIR [LEVEMIR] 3ML CART SC SCH ×2 (09:13→20:02)
[2016-12-17] MEDS: PRENATAL VITAMIN PO SCH (09:34)
[2016-12-18] MEDS: LACTATED RINGER'S 1,000 ML IV SCH ×3 (03:19→19:43)
[2016-12-18] MEDS: INSULIN ASPART [NOVOLOG] 3 ML PEN SC SCH ×6 (08:00→18:05)
[2016-12-18] MEDS: ACCU-CHEK XX SCH ×8 (08:14→21:55)
[2016-12-18] MEDS: INSULIN DETEMIR [LEVEMIR] 3ML CART SC SCH ×2 (08:19→20:41)
[2016-12-18] MEDS: PRENATAL VITAMIN PO SCH (08:55)
--- NOTE | 2016-12-18 20:36 | RADRPT ---
PROCEDURE: US OB. CLINICAL INDICATION: Low ELIZA , pain TECHNIQUE: Transabdominal views of the pelvis are available for review. COMPARISON: 12/16/2016 , 12/15/2016 FINDINGS: There is a single intrauterine gestation in a vertex position. The heart rate is noted at 144 bpm. The placenta is fundal right. The ELIZA measures 2.6 cm. RPTAT: AA IMPRESSION: Marked oligohydramnios, not significantly changed. .Collins Irwin MD, MD Date Time Electronically viewed and signed by .Collins Irwin MD, on 12/18/2016 20:35 .S/
[2016-12-19] MEDS: INSULIN ASPART [NOVOLOG] 3 ML PEN SC SCH ×3 (08:00→12:00)
[2016-12-19] MEDS: ACCU-CHEK XX SCH ×4 (08:41→12:50)
[2016-12-19] MEDS: INSULIN DETEMIR [LEVEMIR] 3ML CART SC SCH (09:09)
[2016-12-19] MEDS: PRENATAL VITAMIN PO SCH (09:11)
[2016-12-19] MEDS ORDERED: INSULIN ASPART [NOVOLOG] 3 ML PEN SC SCH ×2 (12:00→18:05)
--- NOTE | 2016-12-19 16:12 | DS ---
Date/Time of Note Date/Time of Note DATE: 12/19/16 TIME: 16:06 Obstetrical Discharge Record Final Diagnosis Final Diagnosis: not delivered (Discharge diagnosisi: Discharge diagnosis : intrauterine over 27 and 9 weeks ) Condition on Discharge Physical Assessment Voiding: Yes Abdomen and Incision: This is a discharge summary of this 41 years old 6 para 2 3 weeks with estimated date of confinement 04/14/2017 which makes her 27 weeks and 5 days today . She was admitted in the hospital on December 19 due to diabetes and multiple anomalies described on her previous ultrasound studies. She is on several medications to control her blood glucose ,including NovoLog NPH Humalog. She was seen today by Dr. Trevizo ; our perinatologist, and will be discharged home with the following instructions: To check her blood sugar level before breakfast lunch and dinner and 2 hours postprandial and to inject NovoLog 20 units in the morning NPH 30 units for Humalog 24 hours before lunch and dinner. NPH 30 mg All ordered were given to the patient in writing and explained to her in detail. She understands the gravity of her condition and will follow up with her psychology associate Dr. Ordonez as well as the perinatologist. Laboratory Tests Test 12/18/16 17:23 12/18/16 19:46 12/18/16 21:55 12/19/16 08:41 Bedside Glucose 102mg/dL 89mg/dL 167mg/dL 90mg/dL Test 12/19/16 11:10 12/19/16 13:06 12/19/16 15:14 Bedside Glucose 101mg/dL 82mg/dL 123mg/dL Current Medications Medications (Trade) Dose Ordered Sig/Sharri Route PRN Reason Start Time Stop Time Status Last Admin Dose Admin Lactated Ringer's 1,000 ml @ 1,000 mls/hr Q1H STAT IV 12/15/16 20:22 12/15/16 21:21 DC 12/15/16 21:00 Lactated Ringer's 1,000 ml @ 125 mls/hr Q8H IV 12/15/16 21:30 12/18/16 20:46 DC 12/18/16 19:43 Lactated Ringer's (Lr) 1,000 ml @ 125 mls/hr Q8H IV 12/15/16 23:25 12/16/16 02:53 DC Prenat Multivit/ [place]/Iron/Folic Ac () 1 tab DAILY PO 12/16/16 09:00 12/19/16 09:11 Docusate Sodium (Colace) 100 mg DAILY PRN PO CONSTIPATION 12/15/16 23:30 12/17/16 22:07 Diagnostic Test (Pha) (Accu-Chek) 1 ea AC MEALS AND BEDTIME XX 12/16/16 07:05 12/16/16 17:02 DC 12/16/16 11:30 Diagnostic Test (Pha) (Accu-Chek) 1 ea FBSPP XX 12/16/16 06:00 12/16/16 17:02 DC 12/16/16 11:00 Miscellaneous Information (* Miscellaneous Pharmacy Order) 1 ea OB HYPOGLYCEMIA ONCE XX 12/15/16 23:30 12/16/16 00:13 DC Miscellaneous Information (* Miscellaneous Pharmacy Order) 1 ea ONCE ONCE XX 12/15/16 23:30 12/16/16 00:13 DC Miscellaneous Information 1 ea NOTE XX 12/16/16 00:30 Glucose (Glutose) 15 gm Q15M PRN PO DECREASED GLUCOSE 12/16/16 00:30 Glucose (Glutose) 22.5 gm Q15M PRN PO DECREASED GLUCOSE 12/16/16 00:30 Dextrose (D50w Syringe) 25 ml Q15M PRN IV DECREASED GLUCOSE 12/16/16 00:30 Dextrose (D50w Syringe) 50 ml Q15M PRN IV DECREASED GLUCOSE 12/16/16 00:30 Glucagon (Glucagen) 1 mg Q15M PRN IM DECREASED GLUCOSE 12/16/16 00:30 Glucose (Glutose) 15 gm Q15M PRN BUCCAL DECREASED GLUCOSE 12/16/16 00:30 Insulin Human Lispro (Humalog) 34 unit AC BREAKFAST SC 12/16/16 07:05 Cancel Insulin Human Lispro (Humalog) 16 unit AC LUNCH SC 12/16/16 11:00 Cancel Insulin Human Lispro (Humalog) 30 unit AC DINNER SC 12/16/16 17:05 Cancel Insulin Human NPH (Humulin N) 14 unit AC BREAKFAST SC 12/16/16 07:05 12/16/16 17:00 DC 12/16/16 08:22 Insulin Human NPH (Humulin N) 18 unit HS SC 12/16/16 21:00 12/16/16 21:00 DC Insulin Aspart (Novolog Insulin Pen) 34 unit AC BREAKFAST MO 12/16/16 07:05 12/16/16 17:00 DC 12/16/16 08:20 Insulin Aspart (Novolog Insulin Pen) 16 unit AC LUNCH MO 12/16/16 11:00 12/16/16 17:00 DC 12/16/16 12:48 Insulin Aspart (Novolog Insulin Pen) 30 unit AC DINNER MO 12/16/16 17:05 12/16/16 17:05 DC Betamethasone Acet/Betameth SodPhos (Celestone Soluspan) 12 mg Q24H IM 12/16/16 02:00 12/16/16 16:58 DC 12/16/16 02:07 Acetaminophen (Tylenol Tab) 650 mg Q6H PRN PO PAIN AND OR ELEVATED TEMP 12/16/16 09:30 12/16/16 09:31 IV Flush (NS 10 ml) 10 ml Q8 IV 12/16/16 14:00 12/16/16 14:47 DC Diagnostic Test (Pha) (Accu-Chek) 1 ea AC MEALS AND BEDTIME XX 12/16/16 17:35 12/18/16 21:55 Diagnostic Test (Pha) (Accu-Chek) 1 ea FBSPP XX 12/16/16 20:05 12/18/16 19:46 Insulin Detemir (Levemir) 30 unit DAILY@08 MO 12/17/16 08:00 12/19/16 09:09 Insulin Detemir (Levemir) 30 unit DAILY@20 MO 12/16/16 20:00 12/18/16 20:41 Insulin Aspart (Novolog Insulin Pen) 30 unit WITH BREAKFAST MO 12/17/16 08:00 12/19/16 09:10 Insulin Aspart (Novolog Insulin Pen) 30 unit WITH LUNCH MO 12/17/16 12:00 12/18/16 20:46 DC 12/18/16 12:47 Insulin Aspart (Novolog Insulin Pen) 30 unit WITH DINNER MO 12/16/16 18:05 12/18/16 20:46 DC 12/18/16 17:37 Miscellaneous Information (* Miscellaneous Pharmacy Order) 1 ea ONCE ONCE XX 12/16/16 17:00 12/16/16 17:08 DC 12/16/16 17:44 Insulin Aspart (Novolog Insulin Pen) NOVOLOG *MODERATE* ALGORITHM WITH MEALS SC 12/16/16 18:05 12/16/16 17:50 Miscellaneous Information (* Miscellaneous Pharmacy Order) Discontinue all previ... ONCE ONCE XX 12/16/16 17:00 12/16/16 17:08 DC 12/16/16 17:44 Insulin Aspart (Novolog Insulin Pen) 24 unit WITH DINNER SC 12/19/16 18:05 Insulin Aspart (Novolog Insulin Pen) 24 unit WITH LUNCH MO 12/19/16 12:00 12/19/16 12:50 Episiotomy: Patient Condition: Stable (Discharge diagnosis:Discharge diagnosis : intrauterine over 27 and 9 weeks ) MELVA BARRETT MD Dec 19, 2016 16:12
== END 2016-12-19 16:52 | disposition home or self-care (01) | DRG 781 ==
LOC: OBT 18:58 → L-D 19:00 → OBG 23:46 → OBT 23:46
PROVIDERS: ADMIT Obstetrics & Gynecology; ATTEND Obstetrics & Gynecology
DX: O24.414 Gestational diabetes mellitus in pregnancy, insulin controlled (principal); O35.9XX0 Maternal care for (suspected) fetal abnormality and damage, unspecified, not applicable or unspecified; O09.522 Supervision of elderly multigravida, second trimester; Z86.32 Personal history of gestational diabetes; Z3A.25 25 weeks gestation of pregnancy
CPT/HCPCS: 76815; 76816; 76817; 81001; 82962; 83036; 84112; 85025; 87086; 96360; 96361; G0463; J0702; J1815; J7120